=== PATIENT | male | born 1980 | race Asian ===

== ENCOUNTER 2021-12-07 19:34 | Emergency (ER) | payer MEDICAID, SELFPAY ==
[2021-12-07 20:16] VITALS: BP 123/63; PULSE 85; RESP 16; TEMP 36.3; O2SAT 98
--- NOTE | 2021-12-07 20:35 | ED_ITS ---
HPI - Skin/Abscess/Foreign Bdy General Stated complaint: abcess above L knee Time Seen by Provider: 12/07/21 19:46 Source: patient Mode of arrival: ambulatory Limitations: no limitations History of Present Illness HPI narrative: This is a 41-year-old male presenting to the emergency department with complaints of pain, warmth and swelling just below his left knee that started 5 days ago and has been progressively worsening. According to patient he had a small calloway to the area, he popped it and then shortly after the area became red, inflamed and warm. He tells me that he has no pain with movement of left knee. He reports subjective chills however no fevers. He denies knee pain, ankle pain, nausea, vomiting, chest pain, shortness of breath, fevers. Denies trauma to the area. Not up shahzad date on tetanus shot. complaint: other (Cellulitis) Onset (ago): day(s) (5) Tetanus up to date: unsure Location: LLE Severity: moderate Quality: burning Pain Consistency: constant Relieving factors: none Exacerbating factors: none Context: none Treatments prior to arrival: other (ice) Related Data Previous Rx's Medication Instructions Recorded cephalexin 500 mg tablet 500 mg PO Q6H 10 Days #40 tab 12/07/21 doxycycline hyclate 100 mg capsule 100 mg PO BID 10 Days #20 cap 12/07/21 Allergies Allergy/AdvReac Type Severity Reaction Status Date / Time No Known Allergies Allergy Unverified 05/08/20 15:46 Review of Systems Review of Systems: Constitutional : No Weight loss, No Fever, No Chills, No Fatigue, No Malaise ENT/Mouth : No sore throat, No Rhinorrhea Eyes: No Eye Pain, No Swelling, No Redness Cardiovascular : No Chest Pain, No SOB, No Dyspnea on Exertion, No Orthopnea, No Edema, No Palpitations Respiratory : No Cough, No Sputum, No Wheezing Gastrointestinal : No Nausea, No Vomiting, No Diarrhea, No Constipation, No abdominal Pain, No Hematochezia, No Melena Genitourinary : No Dysuria, No Urinary Frequency, No Hematuria, Musculoskeletal : No joint pain, No Myalgias, No Joint Swelling Skin : No Skin Lesions, No rash, + redness below knee Neuro : No Weakness, No Numbness, No Dizziness, No Headache Psych : No Anxiety/Panic, No Depression All other systems reviewed and are negative Yes all other systems are reviewed and are negative [facility] Past Medical History Attestation statement: The following information was validated with the patient. Source: old records reviewed and nursing notes reviewed Social History Social History Advance Directives: No Advance Directives Information Provided: No Physical Exam Vital Signs: Vital Signs: Last Vital Signs Temp 97.3 F 12/07/21 20:16 Pulse 85 12/07/21 20:16 Resp 16 12/07/21 20:16 BP 123/63 12/07/21 20:16 Pulse Ox 98 12/07/21 20:16 vss Appearance: Alert.? Oriented X3.? No acute distress.? Head: Normocephalic, atraumatic, no step-offs or deformities Eyes: Pupils equal, round and reactive to light.? ENT: Pharynx normal.? Neck: Normal inspection.? Neck supple.? CVS: Normal heart rate and rhythm.? Pulses normal.? Respiratory: No respiratory distress.? Breath sounds normal.? Abdomen: Soft and nontender.? Skin: Skin warm and dry.? Normal skin color.? Normal skin turgor.?+ area of erythema, warmth just below the left knee. No evident fluctuance. There is a small scrape below the left knee. Left knee with full range of motion. Extremities: No lower extremity edema.? No calf ttp. 5/5 strength to bilateral upper and lower extremities Neuro: Oriented X 3.? No motor deficit.? No sensory deficit. CN 2-12 intact Course Reevaluation(s) Reevaluation #1: Patient not up-to-date on tetanus shot, for this reason he was given 1 today. Patient will be discharged home on Keflex and doxycycline. Advised him to return with new or worsening symptoms. Educated him on worrisome signs and symptoms and outlined on his discharge. Comfortable discharge home Time: 20:41 MDM - Skin/Abscess/Foreign Bdy MDM Narrative Medical decision making narrative: 2030 41 yo male presents w/ cellulitis to left knee X5 days PE significant for erythema, and calor just below the left knee cap, no fluctuance or evidence abscess. No pain with range of motion of left knee. There is a small scrape just below the left knee cap which could have been the source of entry of infection History and physical examination not consistent with septic joint,erysipelas. Likely cellulitis. Medical Records Attestation: I reviewed the patient's medical records. Lab Data Attestation: I reviewed the patient's lab results. Critical Care Time Critical Care Time Critical Care Time: No Discharge Plan Discharge Clinical Impression: Cellulitis Patient Disposition: Home, Self-Care Instructions: Cellulitis (ED), Warm Compress or Soak (ED) Additional Instructions: Take your medications as prescribed. If you were prescribed antibiotics today, it is important that you take your medication to their entirety, do not skip any doses, do not finish them early. Follow-up with your primary care provider this week. Return to the emergency department with new or worsening symptoms. Such as fevers, chills, chest pain, shortness of breath, nausea, vomiting, dizziness, headache, vision changes, lethargy, warmth, swelling, pain with range of motion of knee In case of emergency call 911 Prescriptions: New doxycycline hyclate 100 mg capsule 100 mg PO BID 10 Days Qty: 20 0RF cephalexin 500 mg tablet 500 mg PO Q6H 10 Days Qty: 40 0RF Referrals: Physician,None [Primary Care Provider] - 2 days Stand Alone Forms: Work/School Release
[2021-12-07 20:47] VITALS: BMI 23.7
[2021-12-07] MEDS: Diphth,Pertus(ACell),Tet Adult 0.5 ML SYRINGE IM (20:54)
== END 2021-12-07 21:04 | disposition home or self-care (01) ==
PROVIDERS: Emergency Provider Emergency Medicine
DX: S80.212A Abrasion, left knee, initial encounter (principal); L03.116 Cellulitis of left lower limb; X58.XXXA Exposure to other specified factors, initial encounter; Y93.9 Activity, unspecified; Y92.9 Unspecified place or not applicable; Y99.9 Unspecified external cause status; Z79.899 Other long term (current) drug therapy
CPT/HCPCS: 90471; 90715; 99283; 99284